=== PATIENT | female | born 1985 | race Two or more races ===

== ENCOUNTER 2020-01-26 11:30 | Inpatient (IN) | payer OTHER ==
[~2020-01-26] VITALS: Ht 170.2 cm; Wt 66.7 kg
[2020-02-01] MEDS ORDERED: Tylenol #3 PO (08:50)
== END 2020-02-01 11:03 | disposition home or self-care (01) | DRG 743 ==
LOC: SURH 01-28 09:30 → PED 01-28 10:00 → O/R 01-28 10:00 → SURH 01-28 11:30 → PED 01-28 18:56 → OB/GYN 01-29 20:38
PROVIDERS: ADMIT Obstetrics & Gynecology; ATTEND Obstetrics & Gynecology
PROC: 0UB90ZZ Excision of Uterus, Open Approach (ICD-10-PCS; principal; 2020-01-28 09:30)
PROC: BU4CZZZ Ultrasonography of Uterus and Ovaries (ICD-10-PCS; 2020-01-31)
DX: D25.2 Subserosal leiomyoma of uterus (principal); Z20.828 Contact with and (suspected) exposure to other viral communicable diseases; N99.89 Other postprocedural complications and disorders of genitourinary system; R33.8 Other retention of urine